=== PATIENT | male | born 1995 | race Caucasian/White ===

== ENCOUNTER 2018-08-08 17:02 | Emergency (ER) | payer BC ==
[2018-08-08] MEDS ORDERED: Ketorolac 30 MG/ML SDV IVPUSH ONE (17:13)
[2018-08-08] MEDS ORDERED: Sodium Chloride 0.9% 1,000 ML IV ONE (17:13)
[2018-08-08] MEDS ORDERED: Ondansetron 4 MG/2 ML SDV IVPUSH ONE (17:13)
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
== END 2018-08-08 17:55 | disposition home or self-care (01) ==
LOC: MW.ED 17:02
DX: F07.81 Postconcussional syndrome (principal); G44.329 Chronic post-traumatic headache, not intractable
CPT/HCPCS: 99283

== ENCOUNTER 2019-10-02 18:19 | Emergency (ER) | payer BC ==
[2019-10-02] MEDS ORDERED: cefTRIAXone 1 GM Vial IM ONE (18:38)
--- NOTE | 2019-10-02 18:43 | EDM.PDOC ---
ED HPI GENERAL MEDICAL PROBLEM - General Chief Complaint: Skin Complaint Stated Complaint: INFECTION LEFT ANITBRACHIAL Time Seen by Provider: 10/02/19 18:39 Source of Information: Reports: Patient History Limitations: Reports: No Limitations - History of Present Illness INITIAL COMMENTS - FREE TEXT/NARRATIVE: HISTORY AND PHYSICAL: History of present illness: Patient is a 23- year-old male presents to the ED with complaint of infection to his left forearm. Patient states it started about 4 days ago. He had an area that he drained and got some pus out. He denies fevers or chills. He states he has had some increased redness around it today. Review of systems: As per history of present illness and below otherwise all systems reviewed and negative. Past medical history: As per history of present illness and as reviewed below otherwise noncontributory. Surgical history: As per history of present illness and as reviewed below otherwise noncontributory. Social history: No reported history of drug or alcohol abuse. Family history: As per history of present illness and as reviewed below otherwise noncontributory. Physical exam: General: Patient sitting comfortably in no acute distress and nontoxic appearing HEENT: Atraumatic, normocephalic, pupils reactive, negative for conjunctival pallor or scleral icterus, mucous membranes moist, throat clear, neck supple, nontender, trachea midline. No meningeal signs. Lungs: Clear to auscultation, breath sounds equal bilaterally, chest nontender. Heart: S1S2, regular, negative for clicks, rubs, or overt murmur. Abdomen: Soft, nondistended, nontender. Negative for masses or hepatosplenomegaly. Negative for costovertebral tenderness. No rigidity, rebound , guarding. Skin: patient has a tattoo to the left forearm. There is a small open sore to the left upper forearm with surrounding erythema. Does not extend to the elbow joint. Some mild streaking in to the upper arm. Extremities: Atraumatic, negative for cords or calf pain. Neurovascular unremarkable. Neuro: Awake, alert, oriented. Cranial nerves II through XII unremarkable. Cerebellum unremarkable. Motor and sensory unremarkable throughout. Exam nonfocal. Notes: Diagnostics: none Therapeutics: 1g Rocephin IM Prescriptions: Bactrim Impression: Cellulitis Plan: Take antibiotic as instructed Follow up with primary care provider Return to ED as needed as discussed Definitive disposition and diagnosis as appropriate pending reevaluation and review of above. L arm Pain Score (Numeric/FACES): 9 - Related Data Allergies Allergy/AdvReac Type Severity Reaction Status Date / Time No Known Allergies Allergy Verified 10/02/19 18:38 Home Meds: Home Meds . [No Known Home Meds] 08/08/18 [History] Past Medical History Neurological History: Reports: Concussion, Other (See Below) Other Neuro History: "nerve damage" ED ROS GENERAL - Review of Systems Review Of Systems: Comprehensive ROS is negative, except as noted in HPI. ED EXAM, SKIN/RASH Exam: See Below (see dictation) Course - Vital Signs Last Recorded V/S: Last Vital Signs Temp 98.3 F 10/02/19 18:33 Pulse 96 10/02/19 18:33 Resp 18 10/02/19 18:33 BP Pulse Ox 97 10/02/19 18:33 - Orders/Labs/Meds Meds: Medications Discontinued Medications Generic Name Dose Route Start Last Admin Trade Name Manuel PRN Reason Stop Dose Admin Ceftriaxone Sodium 1 gm 10/02/19 18:38 Rocephin IM 10/02/19 18:39 ONETIME ONE Departure - Departure Time of Disposition: 18:57 Disposition: Home, Self-Care 01 Condition: Good Clinical Impression: Cellulitis - Discharge Information Referrals: PCP,None [Primary Care Provider] - Forms: ED Department Discharge Additional Instructions: The following information is given to patients seen in the emergency department who are being discharged to home. This information is to outline your options for follow-up care. We provide all patients seen in our emergency department with a follow-up referral. The need for follow-up, as well as the timing and circumstances, are variable depending upon the specifics of your emergency department visit. If you don't have a primary care physician on staff, we will provide you with a referral. We always advise you to contact your personal physician following an emergency department visit to inform them of the circumstance of the visit and for follow-up with them and/or the need for any referrals to a consulting specialist. The emergency department will also refer you to a specialist when appropriate. This referral assures that you have the opportunity for follow-up care with a specialist. All of these measure are taken in an effort to provide you with optimal care, which includes your follow-up. Under all circumstances we always encourage you to contact your private physician who remains a resource for coordinating your care. When calling for follow-up care, please make the office aware that this follow-up is from your recent emergency room visit. If for any reason you are refused follow-up, please contact the [facility] Emergency Department at and asked to speak to the emergency department charge nurse. [facility] [address] [place] [id number] [id number] Take antibiotic as instructed Follow up with primary care provider Return to ED as needed as discussed Sepsis Event Note - Evaluation Sepsis Screening Result: No Definite Risk - Focused Exam Vital Signs: Vital Signs Temp Pulse Resp Pulse Ox 10/02/19 18:33 98.3 F 96 18 97 Date Exam was Performed: 10/02/19 Time Exam was Performed: 18:57
[2019-10-02] MEDS ORDERED: Lidocaine 1% PF 2 ML SDV INJECT ONE (19:11)
== END 2019-10-02 19:45 | disposition home or self-care (01) ==
LOC: MW.ED 18:19
DX: L03.114 Cellulitis of left upper limb (principal)
CPT/HCPCS: 87070; 87077; 87186; 96372; 99283; J0696; J2001